=== PATIENT | female | born 1960 | race Caucasian/White ===

== ENCOUNTER 2018-04-07 22:38 | Emergency (ER) | payer BC ==
[~2018-04-07] VITALS: Ht 162.6 cm; Wt 66.7 kg
--- NOTE | 2018-04-07 23:00 | NUR ---
PATIENT [facility] WITH STEADY GAIT. A/OX3 SPEAKING WITH CLEAR SPEECH C/O N/V WITH DIZZINESS THAT AT 1500 TODAY AFTER RECIEVEING MESSAGE
[2018-04-07] MEDS ORDERED: ANXIETY MED (23:12)
[2018-04-07] MEDS ORDERED: ONDANSETRON 4 MG/2 ML VIAL ONE (23:23)
[2018-04-07] MEDS ORDERED: ONDANSETRON 4 MG/2 ML VIAL IV ONE (23:30)
[2018-04-07] MEDS ORDERED: IV NORMAL SALINE 1000 ML BAG IV ONE (23:30)
--- NOTE | 2018-04-07 23:50 | NUR ---
PATIENT C/O NAUSEA/DIZZINESS AND ZOFRAN NOT EFFECTIVE. DR MEEKS INTO EVAL PATIENT
[2018-04-07] MEDS ORDERED: METOCLOPRAMIDE HCL 10 MG/2 ML VIAL ONE (23:53)
[2018-04-08] MEDS ORDERED: METOCLOPRAMIDE HCL 10 MG/2 ML VIAL IV ONE
[2018-04-08] MEDS ORDERED: diphenhydrAMINE 50 MG/1 ML VIAL IV ONE
--- NOTE | 2018-04-08 00:01 | NUR ---
PATIENT FEELING ANXIOUS,NERVOUS SHORTLY AFTER RECIEVING REGLAN. DR MEEKS AWARE
[2018-04-08] MEDS ORDERED: diphenhydrAMINE 50 MG/1 ML VIAL ONE (00:03)
--- NOTE | 2018-04-08 00:28 | NUR ---
PATIENT STATES NAUSEA IS STILL PRESENT AND UNABLE TO TAKE ANY PO INTAKE. DR MEEKS MADE AWARE
[2018-04-08] MEDS ORDERED: ONDANSETRON 4 MG/2 ML VIAL ONE (00:29)
[2018-04-08] MEDS ORDERED: ONDANSETRON IV *ER 4 MG/2 ML VIAL IV ONE (00:30)
[2018-04-08] MEDS ORDERED: MECLIZINE HCL 25 MG TABLET PO ONE (00:30)
[2018-04-08] MEDS ORDERED: MECLIZINE HCL 25 MG TABLET ONE (01:11)
--- NOTE | 2018-04-08 01:45 | NUR ---
PATIENT ABLE TO TOLERATE PO FLUID WITH NO N/V NOTED
--- NOTE | 2018-04-08 01:50 | NUR ---
IV removed. Catheter intact and site benign. Pressure and 4x4 gauze applied to site. No bleeding noted.
--- NOTE | 2018-04-08 01:54 | NUR ---
Patient discharged to home in stable conditon WITH TAKING PATIENT HOME. Written and verbal after care instructions given. Patient verbalizes understanding of instructions. WALKED OUT OF ER WITH NO DISTRESS NOTED
[2018-04-08 01:55] VITALS: BP 128/75
== END 2018-04-08 01:55 | disposition home or self-care (01) ==
LOC: ER 22:42
DX: R42 Dizziness and giddiness (principal); Z79.899 Other long term (current) drug therapy
CPT/HCPCS: 96361; 96374; 96375; 96376; 99284; A4663; J1200; J2405 ×2; J2765; J7030; J8597